=== PATIENT | male | born 1975 | race Caucasian/White ===

== ENCOUNTER 2020-08-25 15:47 | Emergency (ER) | payer BC, SELFPAY ==
[2020-08-25 16:10] VITALS: BP 141/85; PULSE 93; RESP 18; TEMP 36.7; O2SAT 97; BMI 43.8
--- NOTE | 2020-08-25 16:21 | HMH.EDUTC ---
[facility] [place] Disposition Clinical Impression: Encounter for laboratory testing for COVID-19 virus, Exposure to COVID-19 virus Disposition: Home, Self-Care Condition on Discharge: Good Instructions: Preventing the Spread of Coronavirus Discharge Instructions Additional Instructions: *Monitor Temp, Over the counter Motrin or Tylenol as directed/as needed Tylenol every 4 hours and Motrin every 6 hours (as long as your family doctor has told you that you can take it) for fever or pain. and straight to ER if unable to lower temp less than 101.0 after medication given *Warm salt water gargles may help to soothe the throat *Throat Lozenges *Warm fluids like tea with honey may help to soothe the throat *Sleep elevated *Humidifier/Vaporizer Follow up IMMEDIATELY for new or worsening symptoms or no Noticeable improvement over the next 48-72 hours. 911 for difficulty breathing or swallowing You was tested for today for COVID19 your test result should be back later this evening, you may call back later this evening to see if your test results are back and the result You was given a handout with instructions for Self Quarantine and Self isolation for while you wait on test results and what to do if they are positive Referrals: Celsa Rey [Primary Care Provider] - As needed Forms: Work/School Release Time of Disposition: 16:23 Medical Decision Making - Jc Inquiry Pt receiving controlled substance: No Jc was queried for this patient: No Vital Signs: 08/25/20 16:10 Temperature 98.0 F Temperature Source Oral Pulse Rate [Radial] 93 H Respiratory Rate 18 Blood Pressure [Right Arm] 141/85 H Blood Pressure Mean [Right Arm] 103 Blood Pressure Source [Right Arm] Automatic Cuff Blood Pressure Position [Right Arm] Sitting 02 Sat by Pulse Oximetry 97 Oxygen Delivery Method Room Air Orders (Tests/Meds): ORDERS Category Date Time Status Covid-19 Nasal [facility] Routine Lab 08/25/20 15:56 Ordered [facility] [place] HPI - General Stated complaint: Covid test Time Seen by Provider: 08/25/20 16:21 Mode of Arrival: Ambulatory Source of Information: Patient Limitations: No Limitations Description of Symptoms (Recalled from Triage Doc. by RN): COVID exposure HEENT Symptoms (Recalled from RN notes): No Resp Symptoms (Recalled from RN notes): No Skin Symptoms (Recalled from RN notes): No MS Symptoms (Recalled from RN notes): No Functional Status (Recalled from RN notes): wnl - History of Present Illness Provider Complaint: Patient states that he has not been having any symptoms but his and daughter tested positive for COVID earlier today and he was worried that he may have it too so he came in to get checked - Related Data Allergies Allergy/AdvReac Type Severity Reaction Status Date / Time No Known Allergies Allergy Verified 08/25/20 16:13 - Worker's Comp Is this a Worker's Comp case?: No H History - Hepatitis A Screen Drug use history?: No High risk sexual behaviors?: No History of sexually transmitted infection?: No Currently employed?: No Childcare worker?: No Do you have indoor plumbing?: Yes Do you have electricity?: Yes Attestation statement:: This patient has been screened for Hepatitis A risk factors. I have reviewed the patient's past medical history: Yes - Social History Alcohol Intake: never Occupational Status: employed Housing: house ROS Obtained: Yes All systems reviewed & no additional complaints, Yes Systems reviewed as appropriate & no additional complaints - Constitutional Constitutional: Reports system reviewed and no additional complaints, except as docu, Denies body ache, Denies chills, Denies fever(s), Denies headache(s) - ENT Ears, Nose, Mouth, and Throat: Reports system reviewed and no additional complaints, except as docu, Denies otalgia, Denies nasal congestion, Denies nasal discharge, Denies sore throat - Cardiovascular Cardiovascular: Reports system reviewed and n
[2020-08-25 16:30] VITALS: BP 171/85; PULSE 93; RESP 18; TEMP 36.7
== END 2020-08-25 16:30 | disposition home or self-care (01) ==
PROVIDERS: Emergency Provider Nurse Practitioner; PCP Family Medicine
DX: Z20.828 Contact with and (suspected) exposure to other viral communicable diseases (principal)
CPT/HCPCS: 99201; U0003